=== PATIENT | male | born 1990 | race Two or more races ===

== ENCOUNTER 2021-01-22 19:30 | Inpatient (IN) | payer OTHER ==
[2021-01-22] MEDS ORDERED: MAGNESIUM HYDROX 2400MG/30ML ORAL SUSPENSION 30 ML CUP PO PRN (22:05)
[2021-01-22] MEDS ORDERED: MAG HYDROX/AL HYDROX/SIMETH 30 ML UNIT-DOSE CUP PO PRN (22:05)
[2021-01-22] MEDS ORDERED: LOPERAMIDE HCL 2 MG CAPSULE PO PRN (22:05)
[2021-01-22] MEDS ORDERED: MAGNESIUM CITRATE 300 ML BOTTLE PO PRN (22:05)
[2021-01-22] MEDS ORDERED: guaiFENesin 200 MG/10 ML 10 ML UNIT-DOSE CUPS PO PRN (22:05)
[2021-01-22] MEDS ORDERED: P-EPHED 60MG/TRIPROLIDI 2.5MG TABLET PO PRN (22:05)
[2021-01-23 01:30] VITALS: BMI 20.3
[2021-01-23] MEDS ORDERED: TUBERCULIN PPD 5 TU/0.1ML VIAL ID ONE (02:16)
[2021-01-23] MEDS: hydrOXYzine PAMOATE 25 MG CAPSULE (FP) PO PRN ×2 (02:25→21:11)
[2021-01-23] MEDS: MELATONIN 5 MG TABLETS PO SCH ×2 (02:26→21:11)
[2021-01-23] MEDS: IBUPROFEN 400 MG TABLET (FP) PO PRN ×3 (02:37→17:02)
[2021-01-23] MEDS: ACETAMINOPHEN 325 MG TABLET (FP) PO PRN ×2 (06:09→21:11)
[2021-01-23] MEDS: NICOTINE 14 MG/24 HOURS TOPICAL PATCH TD SCH (10:34)
[2021-01-23] MEDS: PRENATAL VITAMINS W/ FOLIC ACID TABLET (FP) PO SCH (10:34)
[2021-01-23] MEDS ORDERED: ALBUTEROL SO4 HFA INHALER IH PRN (11:23)
[2021-01-23] MEDS: BUDESONIDE/FORMETEROL FUMARATE 80/4.5 mcg INHALER IH SCH ×2 (11:54→21:09)
[2021-01-23] MEDS: amLODIPine BESYLATE 10 MG TABLET (FP) PO SCH (11:54)
[2021-01-23] MEDS: METHOCARBAMOL 500 MG TABLET PO PRN ×2 (11:54→21:11)
[2021-01-23] MEDS: LORATADINE 10 MG TABLET PO SCH (11:54)
[2021-01-23 13:34] LABS: HEMATOCRIT 34.5 % (35.4-49); HEMOGLOBIN 11.5 GM/dL (11.7-16.9); MCH 33.6 pg (25.7-33.7); MCHC 33.4 g/dl (32.0-35.9); MEAN CELL VOLUME 100.6 fl (80-96); MEAN PLT VOLUME 7.2 fl (7.5-11.1); PLATELET COUNT 583 10^3/uL (134-434); RBC 3.43 M/mm3 (4.00-5.60); RDW 14.1 % (11.9-15.9); WHITE BLOOD COUNT 7.2 K/mm3 (4.0-10.0)
[2021-01-23 13:48] LABS: ALBUMIN 3.6 g/dl (3.4-5.0); CALCIUM 9.4 mg/dL (8.5-10.1)
[2021-01-23 13:52] LABS: CREATININE 0.6 mg/dL (0.55-1.3)
[2021-01-23 13:56] LABS: BILIRUBIN,TOTAL 0.3 mg/dL (0.2-1)
[2021-01-23 13:58] LABS: TOT PROT 7.6 g/dl (6.4-8.2)
[2021-01-23] MEDS: THIAMINE HCL 100 MG TABLET (FP) PO SCH (21:11)
[2021-01-24] MEDS: IBUPROFEN 400 MG TABLET (FP) PO PRN ×2 (06:19→16:54)
[2021-01-24] MEDS: METHOCARBAMOL 500 MG TABLET PO PRN ×2 (06:19→21:09)
[2021-01-24] MEDS: PRENATAL VITAMINS W/ FOLIC ACID TABLET (FP) PO SCH (10:36)
[2021-01-24] MEDS: LORATADINE 10 MG TABLET PO SCH (10:37)
[2021-01-24] MEDS: amLODIPine BESYLATE 10 MG TABLET (FP) PO SCH (10:37)
[2021-01-24] MEDS: PANTOPRAZOLE 40 MG TABLET PO SCH (10:39)
[2021-01-24] MEDS: NICOTINE 14 MG/24 HOURS TOPICAL PATCH TD SCH (10:39)
[2021-01-24] MEDS: LIDOCAINE 5% TOPICAL PATCH TP SCH (10:40)
[2021-01-24] MEDS: BUDESONIDE/FORMETEROL FUMARATE 80/4.5 mcg INHALER IH SCH ×2 (10:41→21:11)
[2021-01-24] MEDS: ACETAMINOPHEN 325 MG TABLET (FP) PO PRN (10:41)
[2021-01-24] MEDS: SERTRALINE HCL 50 MG TABLET (FP) PO SCH (10:43)
[2021-01-24] MEDS: GABAPENTIN 400 MG CAPSULE PO SCH ×2 (13:26→21:09)
[2021-01-24 13:45] LABS: PH,URINE 6.5 (5.0-8.0); URINE APPEARANCE CLEAR; URINE BILIRUBIN NEGATIVE (NEGATIVE); URINE COLOR YELLOW; URINE GLUCOSE (UA) NEGATIVE (NEGATIVE); URINE KETONE NEGATIVE (NEGATIVE); URINE LEUK ESTERASE NEGATIVE (NEGATIVE); URINE NITRITE NEGATIVE (NEGATIVE); URINE PROTEIN NEGATIVE (NEGATIVE); URINE UROBILINOGEN 0.2 mg/dL (0.2-1.0)
[2021-01-24] MEDS: THIAMINE HCL 100 MG TABLET (FP) PO SCH (21:08)
[2021-01-24] MEDS: MELATONIN 5 MG TABLETS PO SCH (21:08)
[2021-01-24] MEDS: hydrOXYzine PAMOATE 25 MG CAPSULE (FP) PO PRN (21:08)
[2021-01-24] MEDS: LIDOCAINE PATCH REMOVAL MC SCH (21:09)
[2021-01-24] MEDS: traZODone HCL 50 MG TABLET (FP) PO SCH (21:09)
[2021-01-24] MEDS ORDERED: PT OWN MED DRAWER 7, Y5N ONE (21:11)
[2021-01-25] MEDS: GABAPENTIN 400 MG CAPSULE PO SCH ×3 (06:37→21:39)
[2021-01-25] MEDS: IBUPROFEN 400 MG TABLET (FP) PO PRN ×2 (06:37→21:40)
[2021-01-25] MEDS: METHOCARBAMOL 500 MG TABLET PO PRN ×2 (06:37→21:43)
[2021-01-25] MEDS: PRENATAL VITAMINS W/ FOLIC ACID TABLET (FP) PO SCH (10:30)
[2021-01-25] MEDS: amLODIPine BESYLATE 10 MG TABLET (FP) PO SCH (10:31)
[2021-01-25] MEDS: LORATADINE 10 MG TABLET PO SCH (10:31)
[2021-01-25] MEDS: SERTRALINE HCL 50 MG TABLET (FP) PO SCH (10:31)
[2021-01-25] MEDS: NICOTINE 14 MG/24 HOURS TOPICAL PATCH TD SCH (10:32)
[2021-01-25] MEDS: LIDOCAINE 5% TOPICAL PATCH TP SCH (10:32)
[2021-01-25] MEDS: BUDESONIDE/FORMETEROL FUMARATE 80/4.5 mcg INHALER IH SCH ×2 (10:33→21:40)
[2021-01-25] MEDS: PANTOPRAZOLE 40 MG TABLET PO SCH (10:35)
[2021-01-25] MEDS ORDERED: PT OWN MED DRAWER 7, Y5N ONE ×2 (10:39→18:37)
[2021-01-25] MEDS: ACETAMINOPHEN 325 MG TABLET (FP) PO PRN (14:11)
[2021-01-25] MEDS: THIAMINE HCL 100 MG TABLET (FP) PO SCH (21:39)
[2021-01-25] MEDS: LIDOCAINE PATCH REMOVAL MC SCH (21:42)
[2021-01-25] MEDS: MELATONIN 5 MG TABLETS PO SCH (21:42)
[2021-01-25] MEDS: traZODone HCL 50 MG TABLET (FP) PO SCH (22:42)
[2021-01-26] MEDS: GABAPENTIN 400 MG CAPSULE PO SCH ×3 (06:08→21:44)
[2021-01-26] MEDS: METHOCARBAMOL 500 MG TABLET PO PRN ×3 (06:09→21:44)
[2021-01-26] MEDS: IBUPROFEN 400 MG TABLET (FP) PO PRN ×3 (06:09→21:44)
[2021-01-26] MEDS: PRENATAL VITAMINS W/ FOLIC ACID TABLET (FP) PO SCH (10:26)
[2021-01-26] MEDS: amLODIPine BESYLATE 10 MG TABLET (FP) PO SCH (10:26)
[2021-01-26] MEDS: BUDESONIDE/FORMETEROL FUMARATE 80/4.5 mcg INHALER IH SCH ×2 (10:26→21:43)
[2021-01-26] MEDS: PANTOPRAZOLE 40 MG TABLET PO SCH (10:26)
[2021-01-26] MEDS: LORATADINE 10 MG TABLET PO SCH (10:27)
[2021-01-26] MEDS: NICOTINE 14 MG/24 HOURS TOPICAL PATCH TD SCH (10:27)
[2021-01-26] MEDS: LIDOCAINE 5% TOPICAL PATCH TP SCH (10:27)
[2021-01-26] MEDS: SERTRALINE HCL 50 MG TABLET (FP) PO SCH (10:27)
[2021-01-26] MEDS: ACETAMINOPHEN 325 MG TABLET (FP) PO PRN (10:28)
[2021-01-26] MEDS: hydrOXYzine PAMOATE 25 MG CAPSULE (FP) PO PRN ×2 (14:29→21:44)
[2021-01-26] MEDS ORDERED: PT OWN MED DRAWER 7, Y5N ONE (19:54)
[2021-01-26] MEDS: THIAMINE HCL 100 MG TABLET (FP) PO SCH (21:44)
[2021-01-26] MEDS: traZODone HCL 50 MG TABLET (FP) PO SCH (21:45)
[2021-01-26] MEDS: LIDOCAINE PATCH REMOVAL MC SCH (21:45)
[2021-01-26] MEDS: MELATONIN 5 MG TABLETS PO SCH (21:45)
[2021-01-27] MEDS: PRENATAL VITAMINS W/ FOLIC ACID TABLET (FP) PO SCH (11:05)
[2021-01-27] MEDS: LIDOCAINE 5% TOPICAL PATCH TP SCH (11:05)
[2021-01-27] MEDS: NICOTINE 14 MG/24 HOURS TOPICAL PATCH TD SCH (11:05)
[2021-01-27] MEDS: LORATADINE 10 MG TABLET PO SCH (11:06)
[2021-01-27] MEDS: PANTOPRAZOLE 40 MG TABLET PO SCH (11:06)
[2021-01-27] MEDS: SERTRALINE HCL 50 MG TABLET (FP) PO SCH (11:06)
[2021-01-27] MEDS: BUDESONIDE/FORMETEROL FUMARATE 80/4.5 mcg INHALER IH SCH ×2 (11:06→21:54)
[2021-01-27] MEDS: amLODIPine BESYLATE 10 MG TABLET (FP) PO SCH (11:07)
[2021-01-27] MEDS: hydrOXYzine PAMOATE 25 MG CAPSULE (FP) PO PRN ×3 (11:08→21:55)
[2021-01-27] MEDS: GABAPENTIN 400 MG CAPSULE PO SCH ×2 (14:48→21:55)
[2021-01-27] MEDS: IBUPROFEN 400 MG TABLET (FP) PO PRN (14:48)
[2021-01-27] MEDS: ACETAMINOPHEN 325 MG TABLET (FP) PO PRN (16:28)
[2021-01-27] MEDS: LIDOCAINE PATCH REMOVAL MC SCH (21:55)
[2021-01-27] MEDS: MELATONIN 5 MG TABLETS PO SCH (21:55)
[2021-01-27] MEDS: THIAMINE HCL 100 MG TABLET (FP) PO SCH (21:55)
[2021-01-27] MEDS: METHOCARBAMOL 500 MG TABLET PO PRN (21:55)
[2021-01-27] MEDS: traZODone HCL 50 MG TABLET (FP) PO SCH (22:47)
[2021-01-28] MEDS: GABAPENTIN 400 MG CAPSULE PO SCH ×3 (07:07→22:10)
[2021-01-28] MEDS ORDERED: INSULIN (NOVOLOG) ASPART 100 UNITS/ML 10ML VIAL ONE (07:12)
[2021-01-28] MEDS ORDERED: INSULIN (LEVEMIR) 100 UNITS/ML UNITS SQ ONE (07:12)
[2021-01-28] MEDS: BUDESONIDE/FORMETEROL FUMARATE 80/4.5 mcg INHALER IH SCH ×2 (10:37→22:10)
[2021-01-28] MEDS: SERTRALINE HCL 50 MG TABLET (FP) PO SCH (10:37)
[2021-01-28] MEDS: PRENATAL VITAMINS W/ FOLIC ACID TABLET (FP) PO SCH (10:37)
[2021-01-28] MEDS: amLODIPine BESYLATE 10 MG TABLET (FP) PO SCH (10:38)
[2021-01-28] MEDS: LORATADINE 10 MG TABLET PO SCH (10:38)
[2021-01-28] MEDS: PANTOPRAZOLE 40 MG TABLET PO SCH (10:39)
[2021-01-28] MEDS: NICOTINE 14 MG/24 HOURS TOPICAL PATCH TD SCH (10:39)
[2021-01-28] MEDS: LIDOCAINE 5% TOPICAL PATCH TP SCH (10:39)
[2021-01-28] MEDS: hydrOXYzine PAMOATE 25 MG CAPSULE (FP) PO PRN ×3 (10:41→22:12)
[2021-01-28] MEDS ORDERED: PT OWN MED DRAWER 7, Y5N ONE (19:51)
[2021-01-28] MEDS: traZODone HCL 50 MG TABLET (FP) PO SCH (22:09)
[2021-01-28] MEDS: THIAMINE HCL 100 MG TABLET (FP) PO SCH (22:10)
[2021-01-28] MEDS: MELATONIN 5 MG TABLETS PO SCH (22:11)
[2021-01-28] MEDS: LIDOCAINE PATCH REMOVAL MC SCH (22:11)
[2021-01-28] MEDS: METHOCARBAMOL 500 MG TABLET PO PRN (22:12)
[2021-01-29] MEDS: GABAPENTIN 400 MG CAPSULE PO SCH ×3 (06:00→22:02)
[2021-01-29] MEDS ORDERED: PT OWN MED DRAWER 7, Y5N ONE ×2 (08:21→19:08)
[2021-01-29] MEDS: amLODIPine BESYLATE 10 MG TABLET (FP) PO SCH (10:24)
[2021-01-29] MEDS: PRENATAL VITAMINS W/ FOLIC ACID TABLET (FP) PO SCH (10:24)
[2021-01-29] MEDS: NICOTINE 14 MG/24 HOURS TOPICAL PATCH TD SCH (10:25)
[2021-01-29] MEDS: LORATADINE 10 MG TABLET PO SCH (10:25)
[2021-01-29] MEDS: SERTRALINE HCL 50 MG TABLET (FP) PO SCH (10:25)
[2021-01-29] MEDS: hydrOXYzine PAMOATE 25 MG CAPSULE (FP) PO PRN ×2 (10:26→22:01)
[2021-01-29] MEDS: BUDESONIDE/FORMETEROL FUMARATE 80/4.5 mcg INHALER IH SCH ×2 (10:26→22:02)
[2021-01-29] MEDS: LIDOCAINE 5% TOPICAL PATCH TP SCH (10:28)
[2021-01-29] MEDS: PANTOPRAZOLE 40 MG TABLET PO SCH (10:29)
[2021-01-29] MEDS: METHOCARBAMOL 500 MG TABLET PO PRN ×2 (10:30→22:04)
[2021-01-29] MEDS: MELATONIN 5 MG TABLETS PO SCH (22:00)
[2021-01-29] MEDS: THIAMINE HCL 100 MG TABLET (FP) PO SCH (22:01)
[2021-01-29] MEDS: LIDOCAINE PATCH REMOVAL MC SCH (22:02)
[2021-01-29] MEDS: traZODone HCL 50 MG TABLET (FP) PO SCH (22:02)
[2021-01-30] MEDS: GABAPENTIN 400 MG CAPSULE PO SCH ×3 (07:14→22:37)
[2021-01-30] MEDS ORDERED: COVID-19 VAC,AD26(JANSSEN)/PF 0.5 ML IM ONE (10:00)
[2021-01-30] MEDS: LORATADINE 10 MG TABLET PO SCH (10:40)
[2021-01-30] MEDS: PANTOPRAZOLE 40 MG TABLET PO SCH (10:40)
[2021-01-30] MEDS: PRENATAL VITAMINS W/ FOLIC ACID TABLET (FP) PO SCH (10:40)
[2021-01-30] MEDS: SERTRALINE HCL 50 MG TABLET (FP) PO SCH (10:40)
[2021-01-30] MEDS: LIDOCAINE 5% TOPICAL PATCH TP SCH (10:41)
[2021-01-30] MEDS: amLODIPine BESYLATE 10 MG TABLET (FP) PO SCH (10:41)
[2021-01-30] MEDS: BUDESONIDE/FORMETEROL FUMARATE 80/4.5 mcg INHALER IH SCH ×2 (10:41→22:39)
[2021-01-30] MEDS: NICOTINE 14 MG/24 HOURS TOPICAL PATCH TD SCH (10:41)
[2021-01-30] MEDS: METHOCARBAMOL 500 MG TABLET PO PRN (10:43)
[2021-01-30 10:44] LABS: HEMATOCRIT 34.1 % (35.4-49); HEMOGLOBIN 11.3 GM/dL (11.7-16.9); MCH 32.4 pg (25.7-33.7); MCHC 33.3 g/dl (32.0-35.9); MEAN CELL VOLUME 97.4 fl (80-96); MEAN PLT VOLUME 7.3 fl (7.5-11.1); PLATELET COUNT 431 10^3/uL (134-434); RDW 13.7 % (11.9-15.9); WHITE BLOOD COUNT 6.7 K/mm3 (4.0-10.0)
[2021-01-30] MEDS: hydrOXYzine PAMOATE 25 MG CAPSULE (FP) PO PRN ×2 (14:14→22:37)
[2021-01-30] MEDS: traZODone HCL 50 MG TABLET (FP) PO SCH (22:36)
[2021-01-30] MEDS: LIDOCAINE PATCH REMOVAL MC SCH (22:38)
[2021-01-30] MEDS: MELATONIN 5 MG TABLETS PO SCH (22:38)
[2021-01-30] MEDS: THIAMINE HCL 100 MG TABLET (FP) PO SCH (22:39)
[2021-01-31] MEDS: GABAPENTIN 400 MG CAPSULE PO SCH ×3 (07:29→21:05)
[2021-01-31] MEDS: SERTRALINE HCL 50 MG TABLET (FP) PO SCH (10:30)
[2021-01-31] MEDS: PRENATAL VITAMINS W/ FOLIC ACID TABLET (FP) PO SCH (10:30)
[2021-01-31] MEDS: LORATADINE 10 MG TABLET PO SCH (10:31)
[2021-01-31] MEDS: LIDOCAINE 5% TOPICAL PATCH TP SCH (10:31)
[2021-01-31] MEDS: PANTOPRAZOLE 40 MG TABLET PO SCH (10:31)
[2021-01-31] MEDS: amLODIPine BESYLATE 10 MG TABLET (FP) PO SCH (10:31)
[2021-01-31] MEDS: NICOTINE 14 MG/24 HOURS TOPICAL PATCH TD SCH (10:31)
[2021-01-31] MEDS: BUDESONIDE/FORMETEROL FUMARATE 80/4.5 mcg INHALER IH SCH ×2 (10:34→21:05)
[2021-01-31] MEDS: ACETAMINOPHEN 325 MG TABLET (FP) PO PRN (13:47)
[2021-01-31] MEDS: traZODone HCL 50 MG TABLET (FP) PO SCH (21:05)
[2021-01-31] MEDS: MELATONIN 5 MG TABLETS PO SCH (21:05)
[2021-01-31] MEDS: hydrOXYzine PAMOATE 25 MG CAPSULE (FP) PO PRN (21:05)
[2021-01-31] MEDS: THIAMINE HCL 100 MG TABLET (FP) PO SCH (21:05)
[2021-01-31] MEDS: LIDOCAINE PATCH REMOVAL MC SCH (21:06)
[2021-01-31] MEDS: METHOCARBAMOL 500 MG TABLET PO PRN (21:06)
[2021-02-01] MEDS: GABAPENTIN 400 MG CAPSULE PO SCH ×3 (06:27→21:06)
[2021-02-01] MEDS: PANTOPRAZOLE 40 MG TABLET PO SCH (10:19)
[2021-02-01] MEDS: amLODIPine BESYLATE 10 MG TABLET (FP) PO SCH (10:20)
[2021-02-01] MEDS: LORATADINE 10 MG TABLET PO SCH (10:20)
[2021-02-01] MEDS: SERTRALINE HCL 50 MG TABLET (FP) PO SCH (10:20)
[2021-02-01] MEDS: NICOTINE 14 MG/24 HOURS TOPICAL PATCH TD SCH (10:20)
[2021-02-01] MEDS: PRENATAL VITAMINS W/ FOLIC ACID TABLET (FP) PO SCH (10:21)
[2021-02-01] MEDS: BUDESONIDE/FORMETEROL FUMARATE 80/4.5 mcg INHALER IH SCH ×2 (10:21→21:06)
[2021-02-01] MEDS: LIDOCAINE 5% TOPICAL PATCH TP SCH (10:21)
[2021-02-01] MEDS: METHOCARBAMOL 500 MG TABLET PO PRN ×2 (10:24→21:07)
[2021-02-01] MEDS: hydrOXYzine PAMOATE 25 MG CAPSULE (FP) PO PRN ×2 (16:49→21:07)
[2021-02-01] MEDS ORDERED: PT OWN MED DRAWER 7, Y5N ONE (21:05)
[2021-02-01] MEDS: MELATONIN 5 MG TABLETS PO SCH (21:06)
[2021-02-01] MEDS: traZODone HCL 50 MG TABLET (FP) PO SCH (21:06)
[2021-02-01] MEDS: LIDOCAINE PATCH REMOVAL MC SCH (21:07)
[2021-02-01] MEDS: THIAMINE HCL 100 MG TABLET (FP) PO SCH (21:07)
[2021-02-02] MEDS: METHOCARBAMOL 500 MG TABLET PO PRN ×2 (06:20→22:46)
[2021-02-02] MEDS: hydrOXYzine PAMOATE 25 MG CAPSULE (FP) PO PRN ×3 (06:20→22:46)
[2021-02-02] MEDS: GABAPENTIN 400 MG CAPSULE PO SCH ×3 (06:20→22:43)
[2021-02-02] MEDS: PRENATAL VITAMINS W/ FOLIC ACID TABLET (FP) PO SCH (10:46)
[2021-02-02] MEDS: LORATADINE 10 MG TABLET PO SCH (10:46)
[2021-02-02] MEDS: PANTOPRAZOLE 40 MG TABLET PO SCH (10:46)
[2021-02-02] MEDS: NICOTINE 14 MG/24 HOURS TOPICAL PATCH TD SCH (10:47)
[2021-02-02] MEDS: amLODIPine BESYLATE 10 MG TABLET (FP) PO SCH (10:47)
[2021-02-02] MEDS: LIDOCAINE 5% TOPICAL PATCH TP SCH (10:48)
[2021-02-02] MEDS: BUDESONIDE/FORMETEROL FUMARATE 80/4.5 mcg INHALER IH SCH ×2 (10:48→22:44)
[2021-02-02] MEDS: SERTRALINE HCL 50 MG TABLET (FP) PO SCH (10:50)
[2021-02-02] MEDS ORDERED: PT OWN MED DRAWER 7, Y5N ONE (20:52)
[2021-02-02] MEDS: traZODone HCL 50 MG TABLET (FP) PO SCH (22:43)
[2021-02-02] MEDS: THIAMINE HCL 100 MG TABLET (FP) PO SCH (22:44)
[2021-02-02] MEDS: MELATONIN 5 MG TABLETS PO SCH (22:44)
[2021-02-02] MEDS: LIDOCAINE PATCH REMOVAL MC SCH (22:52)
[2021-02-03] MEDS: GABAPENTIN 400 MG CAPSULE PO SCH ×3 (06:06→23:24)
[2021-02-03] MEDS: hydrOXYzine PAMOATE 25 MG CAPSULE (FP) PO PRN ×3 (06:07→23:22)
[2021-02-03] MEDS: METHOCARBAMOL 500 MG TABLET PO PRN ×3 (06:07→23:24)
[2021-02-03] MEDS: BUDESONIDE/FORMETEROL FUMARATE 80/4.5 mcg INHALER IH SCH ×2 (10:56→23:21)
[2021-02-03] MEDS: LORATADINE 10 MG TABLET PO SCH (10:56)
[2021-02-03] MEDS: PRENATAL VITAMINS W/ FOLIC ACID TABLET (FP) PO SCH (10:56)
[2021-02-03] MEDS: SERTRALINE HCL 50 MG TABLET (FP) PO SCH (10:57)
[2021-02-03] MEDS: amLODIPine BESYLATE 10 MG TABLET (FP) PO SCH (10:57)
[2021-02-03] MEDS: PANTOPRAZOLE 40 MG TABLET PO SCH (10:57)
[2021-02-03] MEDS: NICOTINE 14 MG/24 HOURS TOPICAL PATCH TD SCH (11:00)
[2021-02-03] MEDS: LIDOCAINE 5% TOPICAL PATCH TP SCH (11:00)
[2021-02-03] MEDS: traZODone HCL 50 MG TABLET (FP) PO SCH (23:21)
[2021-02-03] MEDS: THIAMINE HCL 100 MG TABLET (FP) PO SCH (23:22)
[2021-02-03] MEDS: MELATONIN 5 MG TABLETS PO SCH (23:23)
[2021-02-03] MEDS: LIDOCAINE PATCH REMOVAL MC SCH (23:23)
[2021-02-04] MEDS: GABAPENTIN 400 MG CAPSULE PO SCH ×3 (07:14→22:21)
[2021-02-04] MEDS: PRENATAL VITAMINS W/ FOLIC ACID TABLET (FP) PO SCH (10:53)
[2021-02-04] MEDS: amLODIPine BESYLATE 10 MG TABLET (FP) PO SCH (10:53)
[2021-02-04] MEDS: NICOTINE 14 MG/24 HOURS TOPICAL PATCH TD SCH (10:53)
[2021-02-04] MEDS: LORATADINE 10 MG TABLET PO SCH (10:53)
[2021-02-04] MEDS: BUDESONIDE/FORMETEROL FUMARATE 80/4.5 mcg INHALER IH SCH ×2 (10:54→22:19)
[2021-02-04] MEDS: LIDOCAINE 5% TOPICAL PATCH TP SCH (10:54)
[2021-02-04] MEDS: PANTOPRAZOLE 40 MG TABLET PO SCH (10:54)
[2021-02-04] MEDS: SERTRALINE HCL 50 MG TABLET (FP) PO SCH (10:54)
[2021-02-04] MEDS: hydrOXYzine PAMOATE 25 MG CAPSULE (FP) PO PRN ×2 (14:13→22:22)
[2021-02-04] MEDS ORDERED: PT OWN MED DRAWER 7, Y5N ONE (19:43)
[2021-02-04] MEDS: traZODone HCL 50 MG TABLET (FP) PO SCH (22:21)
[2021-02-04] MEDS: MELATONIN 5 MG TABLETS PO SCH (22:22)
[2021-02-04] MEDS: THIAMINE HCL 100 MG TABLET (FP) PO SCH (22:23)
[2021-02-04] MEDS: METHOCARBAMOL 500 MG TABLET PO PRN (22:24)
[2021-02-04] MEDS: LIDOCAINE PATCH REMOVAL MC SCH (23:06)
[2021-02-05] MEDS ORDERED: INSULIN (NOVOLOG) ASPART 100 UNITS/ML 10ML VIAL ONE (07:01)
[2021-02-05] MEDS: GABAPENTIN 400 MG CAPSULE PO SCH ×3 (07:09→21:26)
[2021-02-05] MEDS: PRENATAL VITAMINS W/ FOLIC ACID TABLET (FP) PO SCH (10:34)
[2021-02-05] MEDS: LIDOCAINE 5% TOPICAL PATCH TP SCH (10:34)
[2021-02-05] MEDS: PANTOPRAZOLE 40 MG TABLET PO SCH (10:34)
[2021-02-05] MEDS: LORATADINE 10 MG TABLET PO SCH (10:34)
[2021-02-05] MEDS: BUDESONIDE/FORMETEROL FUMARATE 80/4.5 mcg INHALER IH SCH ×2 (10:34→21:27)
[2021-02-05] MEDS: SERTRALINE HCL 50 MG TABLET (FP) PO SCH (10:34)
[2021-02-05] MEDS: amLODIPine BESYLATE 10 MG TABLET (FP) PO SCH (10:35)
[2021-02-05] MEDS: NICOTINE 14 MG/24 HOURS TOPICAL PATCH TD SCH (10:35)
[2021-02-05] MEDS: hydrOXYzine PAMOATE 25 MG CAPSULE (FP) PO PRN ×2 (14:02→21:25)
[2021-02-05] MEDS: METHOCARBAMOL 500 MG TABLET PO PRN (21:26)
[2021-02-05] MEDS: THIAMINE HCL 100 MG TABLET (FP) PO SCH (21:27)
[2021-02-05] MEDS: MELATONIN 5 MG TABLETS PO SCH (21:27)
[2021-02-05] MEDS: traZODone HCL 50 MG TABLET (FP) PO SCH (21:27)
[2021-02-05] MEDS: LIDOCAINE PATCH REMOVAL MC SCH (21:27)
[2021-02-05] MEDS: NICOTINE POLACRILEX 2 MG GUM BC PRN (22:44)
[2021-02-06] MEDS: GABAPENTIN 400 MG CAPSULE PO SCH (06:17)
[2021-02-06 07:30] VITALS: TEMP 97.6
[2021-02-06 09:39] VITALS: BP 130/87; PULSE 90
[2021-02-06] MEDS: LORATADINE 10 MG TABLET PO SCH (09:50)
[2021-02-06] MEDS: SERTRALINE HCL 50 MG TABLET (FP) PO SCH (09:50)
[2021-02-06] MEDS: amLODIPine BESYLATE 10 MG TABLET (FP) PO SCH (09:51)
[2021-02-06] MEDS: PANTOPRAZOLE 40 MG TABLET PO SCH (09:51)
[2021-02-06] MEDS: PRENATAL VITAMINS W/ FOLIC ACID TABLET (FP) PO SCH (09:51)
[2021-02-06] MEDS: LIDOCAINE 5% TOPICAL PATCH TP SCH (09:51)
[2021-02-06] MEDS: NICOTINE 14 MG/24 HOURS TOPICAL PATCH TD SCH (09:52)
[2021-02-06] MEDS: BUDESONIDE/FORMETEROL FUMARATE 80/4.5 mcg INHALER IH SCH (09:54)
[2021-02-06] MEDS: NICOTINE POLACRILEX 2 MG GUM BC PRN (09:55)
== END 2021-02-06 10:00 | disposition home or self-care (01) | DRG 772 ==
LOC: YASAS 19:30 → Y5N 01-23 01:42
PROVIDERS: ADMIT Allergy & Immunology; ATTEND Allergy & Immunology
PROC: HZ42ZZZ Group Counseling for Substance Abuse Treatment, Cognitive-Behavioral (ICD-10-PCS; principal; 2021-01-23)
DX: F10.20 Alcohol dependence, uncomplicated (principal); F12.20 Cannabis dependence, uncomplicated; F17.210 Nicotine dependence, cigarettes, uncomplicated; F41.1 Generalized anxiety disorder; F32.9 Major depressive disorder, single episode, unspecified; I10 Essential (primary) hypertension; D50.9 Iron deficiency anemia, unspecified; G62.9 Polyneuropathy, unspecified; J45.909 Unspecified asthma, uncomplicated; R00.0 Tachycardia, unspecified; R26.2 Difficulty in walking, not elsewhere classified; Z99.89 Dependence on other enabling machines and devices; Z86.69 Personal history of other diseases of the nervous system and sense organs; Z56.0 Unemployment, unspecified
CPT/HCPCS: 0031A; 36415; 80053; 81003; 82962; 85027; 86780; 91303; 93005; 93010; C9803; U0003; U0005

== ENCOUNTER 2021-12-11 15:47 | Inpatient (IN) | payer OTHER ==
[2021-12-11] MEDS ORDERED: chlordiazePOXIDE HCL 25 MG CAPSULE PO PRN ×2 (18:02→18:06)
[2021-12-11] MEDS ORDERED: LOPERAMIDE HCL 2 MG CAPSULE PO PRN (18:06)
[2021-12-11] MEDS ORDERED: MAG HYDROX/AL HYDROX/SIMETH 30 ML UNIT-DOSE CUP PO PRN (18:06)
[2021-12-11] MEDS ORDERED: ACETAMINOPHEN 325 MG TABLET (FP) PO PRN ×2 (18:06)
[2021-12-11] MEDS ORDERED: BENZOCAINE/MENTHOL (CHLORASEPTIC ) LOZENGE MM PRN (18:06)
[2021-12-11] MEDS ORDERED: ONDANSETRON *ODT* 4 MG TABLET SL PRN (18:06)
[2021-12-11] MEDS ORDERED: MAGNESIUM HYDROX 2400MG/30ML ORAL SUSPENSION 30 ML CUP PO PRN (18:06)
[2021-12-11] MEDS ORDERED: IBUPROFEN 400 MG TABLET (FP) PO PRN (18:06)
[2021-12-11] MEDS ORDERED: BISMUTH SUBSALICYLATE 524 MG/30 ML PO PRN (18:06)
[2021-12-11] MEDS ORDERED: MELATONIN 5 MG TABLETS PO SCH (22:00)
[2021-12-11] MEDS: THIAMINE HCL 100 MG TABLET (FP) PO SCH (22:49)
[2021-12-11] MEDS: chlordiazePOXIDE HCL 25 MG CAPSULE PO SCH (22:49)
[2021-12-11] MEDS: hydrOXYzine PAMOATE 25 MG CAPSULE (FP) PO SCH (22:49)
[2021-12-11] MEDS: PRENATAL VITAMINS W/ FOLIC ACID TABLET (FP) PO SCH (22:56)
[2021-12-12] MEDS: chlordiazePOXIDE HCL 25 MG CAPSULE PO SCH ×4 (05:38→22:27)
[2021-12-12] MEDS: hydrOXYzine PAMOATE 25 MG CAPSULE (FP) PO SCH ×5 (05:39→22:27)
[2021-12-12] MEDS: DICYCLOMINE HCL 10 MG CAPSULE PO PRN (10:26)
[2021-12-12] MEDS: METHOCARBAMOL 500 MG TABLET PO PRN (10:26)
[2021-12-12] MEDS: PRENATAL VITAMINS W/ FOLIC ACID TABLET (FP) PO SCH (10:27)
[2021-12-12] MEDS: BUDESONIDE/FORMETEROL FUMARATE 80/4.5 mcg INHALER IH SCH ×2 (11:29→22:26)
[2021-12-12] MEDS: amLODIPine BESYLATE 5 MG TABLET (FP) PO SCH (11:30)
[2021-12-12] MEDS: PANTOPRAZOLE 40 MG TABLET PO SCH (11:30)
[2021-12-12] MEDS: SERTRALINE HCL 50 MG TABLET (FP) PO SCH (11:30)
[2021-12-12] MEDS: APIXABAN 5 MG TABLET PO SCH ×2 (11:30→22:25)
[2021-12-12] MEDS: FOLIC ACID 1 MG TABLET (FP) PO SCH (11:31)
[2021-12-12] MEDS: ALBUTEROL SO4 HFA INHALER IH SCH ×2 (11:31→14:11)
[2021-12-12 13:51] LABS: HEMATOCRIT 35.7 % (35.4-49); HEMOGLOBIN 11.7 GM/dL (11.7-16.9); MCH 32.4 pg (25.7-33.7); MCHC 32.7 g/dl (32.0-35.9); MEAN CELL VOLUME 98.9 fl (80-96); MEAN PLT VOLUME 7.7 fl (7.5-11.1); PLATELET COUNT 331 10^3/uL (134-434); RDW 14.3 % (11.9-15.9); WHITE BLOOD COUNT 4.8 K/mm3 (4.0-10.0)
[2021-12-12] MEDS: GABAPENTIN 400 MG CAPSULE PO SCH ×2 (14:10→22:26)
[2021-12-12 14:22] LABS: ALBUMIN 3.3 g/dl (3.4-5.0)
[2021-12-12 14:23] LABS: CALCIUM 9.1 mg/dL (8.5-10.1)
[2021-12-12 14:24] LABS: BLOOD UREA NITROGEN 14.3 mg/dL (7-18)
[2021-12-12 14:25] LABS: CREATININE 0.6 mg/dL (0.55-1.3)
[2021-12-12 14:27] LABS: BILIRUBIN,TOTAL 0.7 mg/dL (0.2-1); TOT PROT 7.3 g/dl (6.4-8.2)
[2021-12-12] MEDS ORDERED: ALBUTEROL SO4 HFA INHALER IH PRN (15:47)
[2021-12-12] MEDS: NICOTINE 10 MG CARTRIDGE (INHALER) IH PRN (18:15)
[2021-12-12] MEDS: THIAMINE HCL 100 MG TABLET (FP) PO SCH (22:25)
[2021-12-12] MEDS: traZODone HCL 50 MG TABLET (FP) PO SCH (22:26)
[2021-12-13] MEDS: chlordiazePOXIDE HCL 25 MG CAPSULE PO SCH ×4 (05:49→22:08)
[2021-12-13] MEDS: GABAPENTIN 400 MG CAPSULE PO SCH ×3 (05:49→22:06)
[2021-12-13] MEDS: hydrOXYzine PAMOATE 25 MG CAPSULE (FP) PO SCH ×5 (05:50→22:07)
[2021-12-13] MEDS: BUDESONIDE/FORMETEROL FUMARATE 80/4.5 mcg INHALER IH SCH ×2 (11:10→22:08)
[2021-12-13] MEDS: SERTRALINE HCL 50 MG TABLET (FP) PO SCH (11:11)
[2021-12-13] MEDS: amLODIPine BESYLATE 5 MG TABLET (FP) PO SCH (11:11)
[2021-12-13] MEDS: FOLIC ACID 1 MG TABLET (FP) PO SCH (11:11)
[2021-12-13] MEDS: APIXABAN 5 MG TABLET PO SCH ×2 (11:11→22:06)
[2021-12-13] MEDS: PANTOPRAZOLE 40 MG TABLET PO SCH (11:11)
[2021-12-13] MEDS: PRENATAL VITAMINS W/ FOLIC ACID TABLET (FP) PO SCH (11:12)
[2021-12-13 17:09] LABS: SARS-CoV-2 NAA Not Detected (Not Detected)
[2021-12-13] MEDS: traZODone HCL 50 MG TABLET (FP) PO SCH (22:06)
[2021-12-13] MEDS: THIAMINE HCL 100 MG TABLET (FP) PO SCH (22:07)
[2021-12-14] MEDS ORDERED: chlordiazePOXIDE HCL 10 MG CAPSULE PO PRN ×2
[2021-12-14] MEDS: GABAPENTIN 400 MG CAPSULE PO SCH ×3 (06:13→22:07)
[2021-12-14] MEDS: hydrOXYzine PAMOATE 25 MG CAPSULE (FP) PO SCH ×5 (06:13→22:07)
[2021-12-14] MEDS: chlordiazePOXIDE HCL 10 MG CAPSULE PO SCH ×4 (06:13→22:07)
[2021-12-14] MEDS: PRENATAL VITAMINS W/ FOLIC ACID TABLET (FP) PO SCH (10:12)
[2021-12-14] MEDS: SERTRALINE HCL 50 MG TABLET (FP) PO SCH (10:13)
[2021-12-14] MEDS: amLODIPine BESYLATE 5 MG TABLET (FP) PO SCH (10:13)
[2021-12-14] MEDS: PANTOPRAZOLE 40 MG TABLET PO SCH (10:13)
[2021-12-14] MEDS: APIXABAN 5 MG TABLET PO SCH ×2 (10:13→22:06)
[2021-12-14] MEDS: FOLIC ACID 1 MG TABLET (FP) PO SCH (10:13)
[2021-12-14] MEDS: BUDESONIDE/FORMETEROL FUMARATE 80/4.5 mcg INHALER IH SCH ×2 (11:14→22:06)
[2021-12-14] MEDS: METHOCARBAMOL 500 MG TABLET PO PRN (13:44)
[2021-12-14] MEDS: MAGNESIUM CITRATE 300 ML BOTTLE PO PRN (15:10)
[2021-12-14] MEDS: traZODone HCL 50 MG TABLET (FP) PO SCH (22:05)
[2021-12-14] MEDS: THIAMINE HCL 100 MG TABLET (FP) PO SCH (22:07)
[2021-12-15] MEDS: chlordiazePOXIDE HCL 10 MG CAPSULE PO SCH ×2 (05:33→18:13)
[2021-12-15] MEDS: hydrOXYzine PAMOATE 25 MG CAPSULE (FP) PO SCH ×5 (05:33→22:22)
[2021-12-15] MEDS: GABAPENTIN 400 MG CAPSULE PO SCH ×3 (05:33→22:21)
[2021-12-15] MEDS: APIXABAN 5 MG TABLET PO SCH ×2 (10:45→22:22)
[2021-12-15] MEDS: PANTOPRAZOLE 40 MG TABLET PO SCH (10:45)
[2021-12-15] MEDS: amLODIPine BESYLATE 5 MG TABLET (FP) PO SCH (10:45)
[2021-12-15] MEDS: SERTRALINE HCL 50 MG TABLET (FP) PO SCH (10:45)
[2021-12-15] MEDS: FOLIC ACID 1 MG TABLET (FP) PO SCH (10:45)
[2021-12-15] MEDS: PRENATAL VITAMINS W/ FOLIC ACID TABLET (FP) PO SCH (10:45)
[2021-12-15] MEDS: BUDESONIDE/FORMETEROL FUMARATE 80/4.5 mcg INHALER IH SCH ×2 (10:46→22:21)
[2021-12-15] MEDS: MAGNESIUM CITRATE 300 ML BOTTLE PO PRN (13:09)
[2021-12-15] MEDS: DICYCLOMINE HCL 10 MG CAPSULE PO PRN (18:13)
[2021-12-15] MEDS: NICOTINE 10 MG CARTRIDGE (INHALER) IH PRN (18:15)
[2021-12-15] MEDS: THIAMINE HCL 100 MG TABLET (FP) PO SCH (22:22)
[2021-12-15] MEDS: traZODone HCL 50 MG TABLET (FP) PO SCH (22:22)
[2021-12-16] MEDS ORDERED: chlordiazePOXIDE HCL 10 MG CAPSULE PO ONE ×2 (05:00)
[2021-12-16] MEDS: hydrOXYzine PAMOATE 25 MG CAPSULE (FP) PO SCH ×2 (06:21→10:00)
[2021-12-16] MEDS: GABAPENTIN 400 MG CAPSULE PO SCH (06:21)
[2021-12-16 09:10] VITALS: BP 105/65; PULSE 107; TEMP 96.9
[2021-12-16] MEDS: SERTRALINE HCL 50 MG TABLET (FP) PO SCH (09:57)
[2021-12-16] MEDS: APIXABAN 5 MG TABLET PO SCH (09:57)
[2021-12-16] MEDS: PANTOPRAZOLE 40 MG TABLET PO SCH (09:57)
[2021-12-16] MEDS: amLODIPine BESYLATE 5 MG TABLET (FP) PO SCH (09:57)
[2021-12-16] MEDS: FOLIC ACID 1 MG TABLET (FP) PO SCH (09:57)
[2021-12-16] MEDS: BUDESONIDE/FORMETEROL FUMARATE 80/4.5 mcg INHALER IH SCH (09:58)
[2021-12-16] MEDS: PRENATAL VITAMINS W/ FOLIC ACID TABLET (FP) PO SCH (10:00)
== END 2021-12-16 10:00 | disposition home or self-care (01) | DRG 775 ==
LOC: YASAS 15:47 → Y3N 19:07
PROVIDERS: ADMIT Allergy & Immunology; ATTEND Surgery
PROC: HZ2ZZZZ Detoxification Services for Substance Abuse Treatment (ICD-10-PCS; principal; 2021-12-11)
DX: F10.230 Alcohol dependence with withdrawal, uncomplicated (principal); F12.20 Cannabis dependence, uncomplicated; F17.210 Nicotine dependence, cigarettes, uncomplicated; F19.282 Other psychoactive substance dependence with psychoactive substance-induced sleep disorder; F19.24 Other psychoactive substance dependence with psychoactive substance-induced mood disorder; F41.1 Generalized anxiety disorder; G62.1 Alcoholic polyneuropathy; D50.9 Iron deficiency anemia, unspecified; I10 Essential (primary) hypertension; J45.909 Unspecified asthma, uncomplicated; Z86.718 Personal history of other venous thrombosis and embolism; Z79.01 Long term (current) use of anticoagulants; Z99.89 Dependence on other enabling machines and devices; Z28.310 Unvaccinated for COVID-19
CPT/HCPCS: 36415; 80053; 85027; 86780; 93005; 93010; C9803-CS; U0003; U0005